=== PATIENT | female | born 1985 | race African-American/Black ===

== ENCOUNTER 2021-04-17 16:45 | Emergency (ER) | payer SELFPAY ==
[2021-04-17] MEDS ORDERED: NA CHLORIDE 0.9% 1,000 ML ONE (17:41)
[2021-04-17 17:52] LABS: Absolute Lymphocytes (CBC) 1.4 K/uL (0.7-4.9); Basophils % 0.6 % (0-1.3); Lymphocytes % 18.2 % (15.3-44.8); MPV 7.9 fL (7.6-11.3); RBC Red Blood Cell Count 4.63 M/uL (3.86-4.86)
[2021-04-17 18:09] LABS: Albumin 3.9 g/dL (3.4-5.0); Bilirubin Direct 0.3 mg/dL (0-0.2); Bilirubin Total 1.2 mg/dL (0.2-1.0); Potassium 3.5 mmol/L (3.5-5.1); Protein, Total 8.1 g/dL (6.4-8.2)
--- NOTE | 2021-04-17 20:23 | RAD REPORT ---
EXAM DESCRIPTION: CT - Abdomen Pelvis W Contrast - 04/17/2021 8:02 pm CLINICAL HISTORY: Constipation;Abd pain COMPARISON: <Comparisons> TECHNIQUE: Biphasic, helical CT imaging of the abdomen and pelvis was performed following 100 ml non -ionic IV contrast. No oral contrast administered. All CT scans are performed using dose optimization technique as appropriate and may include automated exposure control or mA/KV adjustment according to patient size. FINDINGS: No suspicious findings in the lung bases. The liver, spleen, and pancreas show no suspicious findings. Gallbladder and biliary tree are also wi thout suspicious finding. Symmetric renal function is seen with no hydronephrosis or suspicious renal mass. No pyelonephritis o r acute parenchymal process. No bladder abnormalities. No adrenal abnormalities. Uterine size is normal. No suspicious myometrial mass identified. IUD is in place and appears to be l ow-lying with the IUD in the lower uterine segment and cervix. This may produce effectiveness and nee ds correlation an outpatient follow-up. No ovarian primary process seen. No stomach or small bowel abnormality. Appendix is normal. Large amount of stool is present dilating the rectum to 7 cm. Stool distends the sigmoid colon. No colon mass identified. No free air, free flu id or inflammatory stranding. No hernia, mass or bulky lymphadenopathy. No suspicious bony findings. IMPRESSION: Large amount of stool dilating the rectum to 7 cm with moderate stool volume distending the sigmoid colon. No appendicitis or surgically emergent finding. IUD is abnormally low within the lower uterine segment cervix likely diminishing long-term effectiven ess of this device.
--- NOTE | 2021-04-17 23:00 | EDPHYS ---
Physician Documentation [facility] Name: Kaylan Farah Age: 35 yrs Sex: Female : 1985 Arrival Date: 04/17/2021 Time: 16:47 Bed 12 Private MD: ED Physician Rj Au HPI: 04/17 17:26 This 35 yrs old Black Female presents to ER via Ambulatory with complaints of pm1 Constipation, Abdominal Pain. 17:26 The patient presents with abdominal pain that is diffuse, Constipation. Onset: The pm1 symptoms/episode began/occurred 2 weeks of constipation, 3 days of abdominal pain. The symptoms do not radiate. Associated signs and symptoms: Pertinent negatives: nausea, vomiting, and diarrhea, chest pain, dysuria, fever, shortness of breath. The symptoms are described as achy. Modifying factors: The symptoms are alleviated by nothing, OTC laxatives without improvement. the symptoms are aggravated by nothing. Severity of pain: in the emergency department the pain is actually worse. The patient has not experienced similar symptoms in the past. The patient has not recently seen a physician. 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 - Social history:: Smoking status: Patient reports the use of cigarette tobacco products, denies chronic smoking, but will smoke occasionally. ROS: 17:26 Constitutional: Negative for fever, chills, and weight loss, Cardiovascular: Negative pm1 for chest pain, palpitations, and edema, Respiratory: Negative for shortness of breath, cough, wheezing, and pleuritic chest pain. 17:26 Back: Negative for injury and pain, : Negative for injury, bleeding, discharge, and swelling, MS/Extremity: Negative for injury and deformity, Skin: Negative for injury, rash, and discoloration. 17:26 Neuro: Negative for headache, weakness, numbness, tingling, and seizure. 17:26 Abdomen/GI: Positive for abdominal pain, constipation, Negative for nausea, vomiting, and diarrhea. 17:26 All other systems are negative. Exam: 17:26 Constitutional: This is a well developed, well nourished patient who is awake, alert, pm1 and in no acute distress. Head/Face: Normocephalic, atraumatic. 17:26 Skin: Warm, dry with normal turgor. Normal color with no rashes, no lesions, and no evidence of cellulitis. MS/ Extremity: Pulses equal, no cyanosis. Neurovascular intact. Full, normal range of motion. 17:26 Cardiovascular: Exam negative for acute changes, Rate: normal, Rhythm: regular, Pulses: no pulse deficits are appreciated. 17:26 Respiratory: Exam negative for acute changes, respiratory distress, shortness of breath. 17:26 Abdomen/GI: Inspection: abdomen appears normal, Palpation: soft, in all quadrants, mild abdominal tenderness, in the right lower quadrant and left lower quadrant. 17:26 Neuro: Exam negative for acute changes, Orientation: is normal, Mentation: is normal, Motor: is normal, moves all fours. Vital Signs: 16:57 BP 98 / 74; Pulse 93; Resp 18; Temp 98; Pulse Ox 99% ; Weight 63.5 kg; Height 5 ft. 4 sv in. (162.56 cm); Pain 10/10; 19:11 BP 117 / 92; Pulse 82; Resp 17; Pulse Ox 99% on R/A; oh 21:00 BP 115 / 82; Pulse 84; Resp 18; Temp 98.6; Pulse Ox 98% ; wr 16:57 Body Mass Index 24.03 (63.50 kg, 162.56 cm) sv MDM: 17:01 Patient medically screened. pm1 21:30 Counseling: I had a detailed discussion with the patient and/or guardian regarding: lab pm1 results, radiology results. 21:42 Data reviewed: vital signs. Data interpreted: Pulse oximetry: on room air is 99 %. pm1 Interpretation: normal. 23:12 ED course: Reports pain and pressure relieved with disimpaction per RN. RN noted that pm1 she remove the hard stool and all she could feel was soft stool. Patient has been given Fleet enema by RN and she feels comfortable going home. Will discharge patient with lactulose for continued bowel movement at home. 04/17 17:12 Order name: Basic Metabolic Panel; Complete Time: 18:30 pm1 04/17 17:12 Order name: CBC with Diff; Complete Time: 18:30 pm1 04/17 17:12 Order name: Hepatic Function; Complete Time: 18:30 pm1 04/17 17:12 Order name: Lipase; Complete Time: 18:30 pm1 04/17 17:12 Order name: CT Abd/Pelvis - PO and IV Contrast; Complete Time: 20:27 pm1 04/17 17:12 Order name: IV Saline Lock; Complete Time: 17:45 pm1 04/17 17:12 Order name: Labs collected and sent; Complete Time: 17:45 pm1 Administered Medications: 17:45 Drug: NS 0.9% 1000 ml Route: IV; Rate: 1000 ml; Site: right antecubital; oh 21:40 Drug: Fleet Enema (sodium phosphate) 133 ml Route: VT; wr 22:35 Drug: Fleet Enema (sodium phosphate) 133 ml Route: VT; wr Disposition Summary: 04/17/21 22:59 Discharge Ordered Location: Home pm1 Problem: new pm1 Symptoms: have improved pm1 Condition: Stable pm1 Diagnosis - Constipation, unspecified pm1 Followup: pm1 - With: Emergency Department - When: As needed - Reason: Worsening of condition Followup: pm1 - With: Private Physician - When: 2 - 3 days - Reason: Recheck today's complaints, Continuance of care, Re-evaluation by your physician Discharge Instructions: - Discharge Summary Sheet pm1 - Constipation, Adult pm1 - Form - Excuse from Work, School, or Physical Activity wr Forms: - Medication Reconciliation Form pm1 - Thank You Letter pm1 - Antibiotic Education pm1 - Prescription Opioid Use pm1 Prescriptions: - Lactulose 10 gram/15 mL Oral Solution - take 30 milliliters by ORAL route once daily; 300 milliliter; Refills: 0, pm1 Product Selection Permitted Addendum: 04/20/2021 08:55 Co-signature as Attending Physician, Rj Au MD I agree with the assessment and r n plan of care. Attestation: The patient's history, exam findings, diagnostics, and a summary of any interventions or procedures was reviewed in detail with Sanya Hyde NP. Signatures: Dispatcher [employer] Ely Chakraborty RN RN sv Nieto, Roman, MD MD rn Marinas, Patrick, NP VISUAL MERCHANDISING ASSISTANT pm1 Meli Poole Oneka RN RN oh
--- NOTE | 2021-04-17 23:00 | ER ---
Nurse's Notes [facility] Name: Kaylan Farah Age: 35 yrs Sex: Female : 1985 Arrival Date: 04/17/2021 Time: 16:47 Bed 12 Private MD: Diagnosis: Constipation, unspecified Presentation: 04/17 16:56 Chief complaint: Patient states: constipation x 2 weeks, diffuse abd pain x 3 days. sv Risk Assessment: Do you want to hurt yourself or someone else? Patient reports no desire to harm self or others. Onset of symptoms was March 2021. 16:56 Method Of Arrival: Ambulatory sv 16:56 Acuity: ISELA 3 sv 16:57 Coronavirus screen: Vaccine status: Patient reports being unvaccinated. Ebola Screen: sv No symptoms or risks identified at this time. Initial Sepsis Screen: Does the patient meet any 2 criteria? HR > 90 bpm. No. Patient's initial sepsis screen is negative. Does the patient have a suspected source of infection? No. Patient's initial sepsis screen is negative. Triage Assessment: 16:59 General: Appears uncomfortable, Behavior is calm, cooperative. Neuro: Level of sv Consciousness is awake, alert, obeys commands, Gait is steady. Respiratory: Respiratory effort is even, unlabored. CENTER MGR: 18:16 LMP N/A - oh Historical: - Allergies: 16:57 No Known Allergies; sv - PMHx: 16:57 None; sv - PSHx: 16:57 None; sv - Immunization history:: Adult Immunizations up to date. - Social history:: Smoking status: Patient reports the use of cigarette tobacco products, denies chronic smoking, but will smoke occasionally. Screenin:08 Abuse screen: Denies threats or abuse. Nutritional screening: No deficits noted. oh Tuberculosis screening: No symptoms or risk factors identified. Fall Risk None identified. Assessment: 17:07 GI: Reports constipation, x 3 days, states she has been taking over the counter stool oh softeners with no relief. 17:51 Reassessment: pt finish oral contrast at 17:50, CT made aware. oh 19:11 Reassessment: awaiting urine, pt endorsed to night rn. oh 19:38 Reassessment: Patient have not given urine specimen. No change in assessment.. wr Vital Signs: 16:57 BP 98 / 74; Pulse 93; Resp 18; Temp 98; Pulse Ox 99% ; Weight 63.5 kg; Height 5 ft. 4 sv in. (162.56 cm); Pain 10/10; 19:11 BP 117 / 92; Pulse 82; Resp 17; Pulse Ox 99% on R/A; oh 21:00 BP 115 / 82; Pulse 84; Resp 18; Temp 98.6; Pulse Ox 98% ; wr 16:57 Body Mass Index 24.03 (63.50 kg, 162.56 cm) sv ED Course: 16:47 Patient arrived in ED. am2 16:56 Arm band placed on. sv 16:57 Triage completed. sv 17:01 [facility] Hyde [facility]. pm1 17:01 Rj Au MD is Attending Physician. pm1 17:02 Suad Elaine, DANIKA is Primary Nurse. oh 17:08 Bed in low position. Call light in reach. oh 17:45 Inserted saline lock: 20 gauge in right antecubital area, using aseptic technique. oh Blood collected. 20:02 CT Abd/Pelvis - PO and IV Contrast In Process Unspecified. EDMS Administered Medications: 17:45 Drug: NS 0.9% 1000 ml Route: IV; Rate: 1000 ml; Site: right antecubital; oh 21:40 Drug: Fleet Enema (sodium phosphate) 133 ml Route: CA; wr 22:35 Drug: Fleet Enema (sodium phosphate) 133 ml Route: CA; wr Outcome: 22:59 Discharge ordered by MD. pm1 23:19 Patient left the ED. Signatures: Dispatcher [employer] EDMS Ely Alvarado RN RN Sanya Hyde NP GEAR REPAIR SUPERVISOR pm1 Alesia Silva amMeli Haro Suad Elaine RN RN oh Corrections: (The following items were deleted from the chart) 16:59 16:57 Pulse 93bpm; Resp 18bpm; Pulse Ox 99%; Temp 98F; 63.5 kg; Height 5 ft. 4 in.; sv BMI: 24.0; Pain 10/10; sv
[2021-04-17 23:40] VITALS: BP 115/82; TEMP 98.6; O2SAT 98
== END 2021-04-17 23:19 | disposition home or self-care (01) ==
LOC: ER 16:45
DX: K59.00 Constipation, unspecified (principal); F17.210 Nicotine dependence, cigarettes, uncomplicated
CPT/HCPCS: 36415; 74177; 80048; 80076; 83690; 85025; 99284; J7030; Q9967

== ENCOUNTER 2024-10-21 00:19 | Emergency (ER) | payer SELFPAY ==
--- OUTSIDE RECORDS SUMMARY | 2024-10-21 00:23 | XMS REPORT | Continuity of Care Document ---
Author Name Unknown Address [address] [facility] [address] [place] [address] [facility] [place] Address [address] [facility] 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 Role Phone Elton Bateman Attending Clinician Unavailable Elton Bateman Attending Clinician Unavailable Elton Bateman Admitting Clinician Unavailable Payers Payer Name Policy Type Policy Number Effective Date Expirati on Date Source Allergies, Adverse Reactions, Alerts Allergy Name Allergy Type Status Severity Reaction(s) Onset Date Inactive Date Treating Clinician Comments Source No Known Drug Allergie s DA Active U 01-02 00:00: 00 [facility] No Known Allergie s Drug Active Health system Vital Signs Vital Name Observation Time Observation Value Comments S yuko Height/Length Measured 2021-07-31 12:17:11 162.6 cm Weight Dosing 2021-07-31 12:17:11 63.50 kg Height/Length Measured 2021-07-31 12:16:36 162.6 cm Weight Dosing 2021-07-31 12:16:36 63.50 kg Height/Length Measured 2021-07-31 12:15:35 162.6 cm Weight Dosing 2021-07-31 12:15:35 63.50 kg Height/Length Measured 2021-07-31 12:14:23 162.6 cm Weight Dosing 2021-07-31 12:14:23 63.50 kg Height/Length Measured 2021-07-31 12:13:37 162.6 cm Weight Dosing 2021-07-31 12:13:37 63.50 kg Height/Length Measured 2021-07-31 12:11:33 162.6 cm Weight Dosing 2021-07-31 12:11:33 63.50 kg Height/Length Measured 2021-07-31 12:11:32 162.6 cm Weight Dosing 2021-07-31 12:11:32 63.50 kg Height/Length Measured 2021-07-31 12:11:08 162.6 cm Weight Dosing 2021-07-31 12:11:08 63.50 kg Height/Length Measured 2021-07-31 12:10:22 162.6 cm Weight Dosing 2021-07-31 12:10:22 63.50 kg Height/Length Measured 2021-07-31 12:10:05 162.6 cm Weight Dosing 2021-07-31 12:10:05 63.50 kg Height/Length Measured 2021-07-31 12:09:47 162.6 cm Weight Dosing 2021-07-31 12:09:47 63.50 kg Height/Length Measured 2021-07-31 12:09:34 162.6 cm Height/Length Measured 2021-07-31 12:09:32 162.6 cm Height/Length Measured 2021-07-31 12:09:21 162.6 cm Height/Length Measured 2021-07-31 12:09:14 162.6 cm Height/Length Measured 2021-07-31 12:09:12 162.6 cm Height/Length Measured 2020-03-14 15:12:23 Encounters Start Date/Time End Date/Time Encounter Type Admission Type Attending [facility] Care Department Encounter ID Source 2021-01-02 15:14:00 Inpatient [facility] [id number] [facility] 2021-01-02 15:14:00 Inpatient [facility] [id number] [facility] 2020-03-14 14:57:00 2020-03-22 13:32:00 Inpatient 1 Elton Bateman Michael [facility] PSY [id number] Health system 2020-03-14 14:57:00 2020-03-14 14:57:00 Emergency [facility] LISA [id number] Health system Results Test Description Test Time Test Comments Results Result Co mments Source HCG, Urine Qual (LAB)2021-01-02 16:05:00* Test Item Value Reference Range Interpretation Comme nts HCG, Urine, Qual (test code = HCGU) Negative Negative Drug Screen,[id number] 16:05:00* Test Item Value Reference Range Interpretation Comme nts PCP Phencyclidine Screen,Uri ne (test code = PCPU) Negative Negative Amphetamine Screen,Urine (te st code = AMPU) Negative Negative Methadone Screen,Urine (test code = METHU) Negative Negative Opiate Screen,Urine (test co de = UOPIS) Negative Negative Barbituates Screen,Urine (te st code = BARBU) Negative Negative Benzodiazepines Screen,Urine (test code = UBENZS) Negative Negative Cocaine Screen,Urine (test c ode = UCOCS) Negative Negative Cannabinoid Screen,Urine (te st code = UTHCS) Positive Negative A Propoxyphene Screen, Urine ( test code = UPROP) Negative Negative Coronavirus PCR, COVID19 [id number] 16:01:00* Test Item Value Reference Range Interpretation Comme nts Coronavirus PCR, COVID19 Rapid (test code = SARSCOV2) For use under Emergency Use Authorization (EUA) only. Coronavirus PCR, COVID19 Rapid (test code = BNAUMBL99.1) Reference Range: Negative SARS-CoV-2 PCR Result: (test code = SARS-CoV-2 PCR Result:) Negative by PCR COVID-19 Status: AsymptomaticComprehensive Metabolic [id number] 15:56:00* Test Item Value Reference Range Interpretation Comme nts SODIUM (test code = NA) 137.0 mmol/L 136.0-145.0 N Potassium,K (test code = K) 4.1 mmol/L 3.0-5.1 N Chloride (test code = CL) 106 mmol/L 98-107 N Carbon Dioxide (test code = CO2) 28 mmol/L 20-31 N Anion Gap (test code = GAP) 3 mmol/L 5-15 L Blood Urea Nitrogen (test co de = BUN) 13 mg/dL 9-23 N Creatinine (test code = CREATT) 0.79 mg/dL 0.55-1.02 N Creatinine Clr Calc Pharmacy (test code = CRCLPHA) 87.46 mL/min Estimated GFR ( [place] (test code = EGFRAA) > 60 mL/min/1.73m2 Estimated GFR (Non Afr [place] (test code = EGFRNAA) > 60 mL/min/1.73m2 BUN/Creatinine Ratio (test c ode = BCRATIO) 16 ratio 10-20 N Glucose (test code = GLU) 99 mg/dL 74-106 N Osmolality,Calculated (test code = OSMOC) 283.6 Calcium (test code = CA) 9.4 mg/dL 8.3-10.6 N Bilirubin,Total (test code = BILIT) 0.7 mg/dL 0.2-1.1 N Aspartate Amino Transferase (test code = AST) 17 U/L 0-34 N Alanine Aminotransferase (te st code = ALT) 13 U/L 10-49 N Total Protein (test code = TP) 7.0 g/dL 5.7-8.2 N Albumin Level (test code = ALB) 4.4 g/dL 3.2-4.8 N Globulin (test code = GLOB) 2.6 mg/dL 2.3-3.5 N Albumin/Globulin Ratio (test code = AGRATIO) 1.7 ratio 0.8-2.0 N Alkaline Phosphatase (test c ode = ALP) 73 U/L 46-116 N Ethanol [id number] 15:56:00* Test Item Value Reference Range Interpretation Comme nts Ethanol (test code = ETOH) 5 mg/dL Complete Blood Count Auto [id number] 15:56:00* Test Item Value Reference Range Interpretation Comme nts White Blood Count (test code = WBCT) 6.2 x10 3/uL 4.4-10.5 N Red Blood Count (test code = RBC) 4.19 x10 6/uL 3.75-5.20 N Hemoglobin (test code = HGBT) 12.0 g/dL 12.2-14.8 L Hematocrit (test code = HCTT) 37.4 % 36.5-44.4 N Mean Corpuscular Volume (anum t code = MCV) 89.30 fL 80.00-100.00 N Mean Corpuscular Hemoglobin (test code = MCH) 28.6 pg 27.0-32.5 N Mean Corpuscular HGB Conc (test code = MCHC) 32.10 g/dL 32.00-37.50 N RDW Coefficient of Variation (test code = RDWCV) 12.8 % 11.5-14.5 N Platelet Count (test code = PLTT) 298.0 x10 3/uL 140.0-440.0 N Mean Platelet Volume (test code = MPV) 9.5 fL Immature Granulocytes % (Aut o) (test code = IMMGRAN%) 0.2 % 0.0-5.0 N Neutrophils % (Auto) (test code = NE%) 57.5 % 36.0-70.0 N Lymphocytes % (Auto) (test code = LY%) 30.7 % 12.0-44.0 N Monocytes % (Auto) (test cod e = MO%) 8.2 % 0.0-11.0 N Eosinophils % (Auto) (test code = EO%) 2.6 % 0.0-7.0 N Basophils % (Auto) (test cod e = BA%) 0.8 % 0.0-2.0 N Immature Granulocytes # (Aut o) (test code = IMMGRAN#) 0.01 x10 3/uL Neutrophils # (Auto) (test code = NE#) 3.6 x10 3/uL 1.6-7.4 N Lymphocytes # (Auto) (test code = LY#) 1.91 x10 3/uL 0.50-4.60 N Monocytes # (Auto) (test cod e = MO#) 0.51 x10 3/uL 0.00-1.20 N Eosinophils # (Auto) (test code = EO#) 0.16 x10 3/uL 0.00-0.74 N Basophils # (Auto) (test cod e = BA#) 0.05 x10 3/uL 0.00-0.21 N nRBC Abs (test code = NRBCA) 0 nRBC Pct (test code = NRBCP) 0 % RPR [id number] 18:40:32* Test Item Value Reference Range Interpretation Comme nts RPR Qual (test code = RPR Qual) Non-Reactive Non-Reactive Reactive Control (test code = Reactive Control) Reactive Weak Reactive Control (test code = Weak Reactive Control) Weak Reactive Non-Reactive Control (test c ode = Non-Reactive Control) Non-Reactive Lot # (test code = Lot #) [id number] N Expiration Dt (test code = Expiration Dt) 9,.30.21 N Urine [id number] 09:41:14C Urine Added by [id number] growth at 24 hours. No growth at 48 hours.Novel Coronavirus SARS-CoV-2, [id number] 22:48:32* Test Item Value Reference Range Interpretation Comme nts SARS-CoV-2 PCR (test code = SARS-CoV-2 PCR) NEGATIVE Negative Positive results are indicative of active infection with SARS-CoV-2; clinical correlation with patient history and other diagnostic information is necessary to determine patient infection status.Presumptive positive results -INTERPRET WITH CAUTION: Result may not reflect if patient is actually positive. Patient should be treated based on clinical suspicions. Negative results do not preclude SARS-CoV-2 infection and should not be used as the sole basis for treatment or other patient management decisions. Negative results must be combined with clinical observations, patient history, and epidemiological information.The Xpert Xpress SARS-CoV-2 test is only for use under the Food and Drug Administration s Emergency Use Authorization." Urinalysis [id number] 18:32:24* Test Item Value Reference Range Interpretation Comme nts UA WBC (test code = UA WBC) 20-29 0-5 A UA RBC (test code = UA RBC) 0-5 0-5 UA Bacteria (test code = UA Bacteria) Moderate A UA Squam Epithelial (test co de = UA Squam Epithelial) TNTC A UA Mucous (test code = UA Mucous) Moderate A Urinalysis with Culture, if [id number] 18:10:33* Test Item Value Reference Range Interpretation Comme nts UA Color (test code = UA Color) YELLO Yellow UA Appear (test code = UA Appear) SCLD Clear A UA pH (test code = UA pH) 5.5 N UA Spec Grav (test code = UA Spec Grav) 1.030 1.001-1.035 UA Glucose (test code = UA Glucose) NEG Negative UA Bili (test code = UA Bili) Small mg/dL N UA Ketones (test code = UA Ketones) Trace mg/dL N UA Blood (test code = UA Blood) NEG Negative UA Protein (test code = UA Protein) 30 mg/dL N UA Urobilinogen (test code = UA Urobilinogen) .2 mg/dL >0.2 UA Nitrite (test code = UA Nitrite) NEG Negative UA Leuk Est (test code = UA Leuk Est) Trace cells/mcL N UA Micro Ind? (test code = U A Micro Ind?) Indicated Not Indicated A Urine [id number] 17:59:28* Test Item Value Reference Range Interpretation Comme nts Amphetamine Screen Ur (test code = Amphetamine Screen Ur) Positive Negative A The speci men is presumptive positive if the analyte concentration is equal to or greater than 1000 ng/ml.If confirmation of positive result is desired, please order Amphetamine Confirmation, Urine within 7 days. Barbiturate Screen Ur (test code = Barbiturate Screen Ur) Negative Negative The speci men is presumptive positive if the analyte concentration is equal to or greater than 200 ng/ml.If confirmation of positive result is desired, please order Barbiturate Confirmation, Urine within 7 days. Benzodiazepines Ur (test code = Benzodiazepines Ur) Negative Negative The specimen is presumptive positive if the analyte concentration is equal to or greater than 200 ng/ml.If confirmation of positive result is desired, please order Benzodiazephine Confirmation, Urine within 7 days. Cocaine Screen Ur (test code = Cocaine Screen Ur) Negative Negative The specimen is presumptive positive if the analyte concentration is equal to or greater than 300 ng/ml.If confirmation of positive result is desired, please order Cocaine Metabolite Confirmation, Urine within 7 days. Opiate Screen Ur (test code = Opiate Screen Ur) Negative Negative The specimen is presumptive positive if the analyte concentration is equal to or greater than 2000 ng/ml.If confirmation of positive result is desired, please order Opiate Confirmation, Urine within 7 days. U PCP Scrn (test code = U PCP Scrn) Negative Negative The specimen is presumptive positive if the analyte concentration is equal to or greater than 25 ng/ml.If confirmation of positive result is desired, please order Phencyclidine Confirmation, Urine within 7 days. Cannabinoid Screen Ur (test code = Cannabinoid Screen Ur) Negative Negative The speci men is presumptive positive if the analyte concentration is equal to or greater than 50 ng/ml.If confirmation of positive result is desired, please order Cannabinoid (THC) Confirmation, Urine within 7 days. U Methadone Scr (test code = U Methadone Scr) Negative Negative The spec imen is presumptive positive if the analyte concentration is equal to or greater than 300 ng/ml.If confirmation of positive result is desired, please order Methadone Confirmation, Urine within 7 days. U Propoxyphene (test code = U Propoxyphene) Negative Negative The speci men is presumptive positive if the analyte concentration is equal to or greater than 300 ng/ml.If confirmation of positive result is desired, please order Propoxyphene Confirmation within 7 days. Comprehensive Metabolic [id number] 17:43:17* Test Item Value Reference Range Interpretation Comme nts Sodium Level (test code = So dium Level) 137.0 mmol/L 136.0-145.0 Potassium Level (test code = Potassium Level) 3.50 mmol/L 3.50-5.10 Chloride Level (test code = Chloride Level) 104.0 mmol/L 98.0-107.0 CO2 (test code = CO2) 28 mmol/L 20-31 Anion Gap (test code = Anion Gap) 5.0 mmol/L 5.0-15.0 BUN (test code = BUN) 15 mg/dL 9-23 Creatinine Level (test code = Creatinine Level) 0.95 mg/dL 0.55-1.02 BUN/Creat Ratio (test code = BUN/Creat Ratio) 15.8 ratio 10.0-20.0 Glucose Level (test code = Glucose Level) 100 mg/dL 74-106 Calcium Level (test code = Calcium Level) 8.9 mg/dL 8.3-10.6 Alk Phos (test code = Alk Phos) 106 U/L 46-116 Bilirubin Total (test code = Bilirubin Total) 1.1 mg/dL 0.2-1.1 Albumin Level (test code = Albumin Level) 4.6 g/dL 3.2-4.8 Protein Total (test code = Protein Total) 7.3 g/dL 5.7-8.2 ALT (test code = ALT) 15 U/L 10-49 AST (test code = AST) 18 U/L <=34 Globulin (test code = Globulin) 2.7 g/dL 2.3-3.5 A/G Ratio (test code = A/G Ratio) 1.7 g/dL 0.8-2.0 Hemolysis (test code = Hemolysis) 0 g/dL 1-2 Icterus (test code = Icterus) 0 g/dL 1-2 Lipemia (test code = Lipemia) 0 g/dL 1-2 Comprehensive Metabolic [id number] 17:43:17* Test Item Value Reference Range Interpretation Comme nts Sodium Level (test code = Sodium Level) 137.0 mmol/L 136.0-145.0 Potassium Level (test code = Potassium Level) 3.50 mmol/L 3.50-5.10 Chloride Level (test code = Chloride Level) 104.0 mmol/L 98.0-107.0 CO2 (test code = CO2) 28 mmol/L 20-31 Anion Gap (test code = Anion Gap) 5.0 mmol/L 5.0-15.0 BUN (test code = BUN) 15 mg/dL 9-23 Creatinine Level (test code = Creatinine Level) 0.95 mg/dL 0.55-1.02 BUN/Creat Ratio (test code = BUN/Creat Ratio) 15.8 ratio 10.0-20.0 Glucose Level (test code = Glucose Level) 100 mg/dL 74-106 Calcium Level (test code = Calcium Level) 8.9 mg/dL 8.3-10.6 Alk Phos (test code = Alk Phos) 106 U/L 46-116 Bilirubin Total (test code = Bilirubin Total) 1.1 mg/dL 0.2-1.1 Albumin Level (test code = Albumin Level) 4.6 g/dL 3.2-4.8 Protein Total (test code = Protein Total) 7.3 g/dL 5.7-8.2 ALT (test code = ALT) 15 U/L 10-49 AST (test code = AST) 18 U/L <=34 Globulin (test code = Globulin) 2.7 g/dL 2.3-3.5 A/G Ratio (test code = A/G Ratio) 1.7 g/dL 0.8-2.0 eGFR AA (test code = eGFR AA) >60 mL/min/1.73 m2 >=60 eGFR (estimated Glomerular Filtration Rate) is an estimated value, calculated from the patient's serum creatinine using the MDRD equation. It is NOT the patient's actual GFR. The eGFR provides a more clinically useful measure of kidney disease than serum creatinine alone.This calculation takes sex and race into account, if the information is provided. If the race is not provided, and the patient is -[place], multiply by 1.212. If sex is not provided, and the patient is female, multiply by 0.742. Results for patients <18 years of age have not been validated by the MDRD study and should be interpreted with caution. eGFR Result Interpretation:eGFR > or = 60 is in the Normal RangeeGFR < 60 may mean kidney diseaseeGFR < 15 may mean kidney failure Ranges recommended by the National Kidney Foundation, http://nkdep.nih.gov Hemolysis (test code = Hemolysis) 0 g/dL 1-2 Icterus (test code = Icterus) 0 g/dL 1-2 Lipemia (test code = Lipemia) 0 g/dL 1-2 Alcohol [id number] 17:43:17* Test Item Value Reference Range Interpretation Comme nts Ethanol Level (test code = Ethanol Level) 4.8 mg/dL N The pharmacologi royal response to blood alcohol levels may vary from individual to individual. The fatal concentration has been reported to be >400 mg/dl. HCG Qualitative [id number] 17:43:17* Test Item Value Reference Range Interpretation Comme nts HCG, Serum Qual (test code = HCG, Serum Qual) Negative Negative Comprehensive Metabolic [id number] 17:43:17* Test Item Value Reference Range Interpretation Comme nts Sodium Level (test code = Sodium Level) 137.0 mmol/L 136.0-145.0 Potassium Level (test code = Potassium Level) 3.50 mmol/L 3.50-5.10 Chloride Level (test code = Chloride Level) 104.0 mmol/L 98.0-107.0 CO2 (test code = CO2) 28 mmol/L 20-31 Anion Gap (test code = Anion Gap) 5.0 mmol/L 5.0-15.0 BUN (test code = BUN) 15 mg/dL 9-23 Creatinine Level (test code = Creatinine Level) 0.95 mg/dL 0.55-1.02 BUN/Creat Ratio (test code = BUN/Creat Ratio) 15.8 ratio 10.0-20.0 Glucose Level (test code = Glucose Level) 100 mg/dL 74-106 Calcium Level (test code = Calcium Level) 8.9 mg/dL 8.3-10.6 Alk Phos (test code = Alk Phos) 106 U/L 46-116 Bilirubin Total (test code = Bilirubin Total) 1.1 mg/dL 0.2-1.1 Albumin Level (test code = Albumin Level) 4.6 g/dL 3.2-4.8 Protein Total (test code = Protein Total) 7.3 g/dL 5.7-8.2 ALT (test code = ALT) 15 U/L 10-49 AST (test code = AST) 18 U/L <=34 Globulin (test code = Globulin) 2.7 g/dL 2.3-3.5 A/G Ratio (test code = A/G Ratio) 1.7 g/dL 0.8-2.0 eGFR AA (test code = eGFR AA) >60 mL/min/1.73 m2 >=60 eGFR (estimated Glomerular Filtration Rate) is an estimated value, calculated from the patient's serum creatinine using the MDRD equation. It is NOT the patient's actual GFR. The eGFR provides a more clinically useful measure of kidney disease than serum creatinine alone.This calculation takes sex and race into account, if the information is provided. If the race is not provided, and the patient is -[place], multiply by 1.212. If sex is not provided, and the patient is female, multiply by 0.742. Results for patients <18 years of age have not been validated by the MDRD study and should be interpreted with caution. eGFR Result Interpretation:eGFR > or = 60 is in the Normal RangeeGFR < 60 may mean kidney diseaseeGFR < 15 may mean kidney failure Ranges recommended by the National Kidney Foundation, http://nkdep.nih.gov eGFR Non-AA (test code = eGFR Non-AA) >60.00 mL/min/1.73 m2 >=60.00 eGFR (estimated Glomerular Filtration Rate) is an estimated value, calculated from the patient's serum creatinine using the MDRD equation. It is NOT the patient's actual GFR. The eGFR provides a more clinically useful measure of kidney disease than serum creatinine alone.This calculation takes sex and race into account, if the information is provided. If the race is not provided, and the patient is -[place], multiply by 1.212. If sex is not provided, and the patient is female, multiply by 0.742. Results for patients <18 years of age have not been validated by the MDRD study and should be interpreted with caution. eGFR Result Interpretation:eGFR > or = 60 is in the Normal RangeeGFR < 60 may mean kidney diseaseeGFR < 15 may mean kidney failure Ranges recommended by the National Kidney Foundation, http://nkdep.nih.gov Hemolysis (test code = Hemolysis) 0 g/dL 1-2 Icterus (test code = Icterus) 0 g/dL 1-2 Lipemia (test code = Lipemia) 0 g/dL 1-2 Automated [id number] 17:42:50* Test Item Value Reference Range Interpretation Comme nts Neutro Auto (test code = Wisam tro Auto) 64.5 % 36.0-70.0 Lymph Auto (test code = Lymph Auto) 24.8 % 12.0-44.0 Marinette Auto (test code = Marinette Auto) 9.0 % 0.0-11.0 Eos, Auto (test code = Eos, Auto) 0.8 % 0.0-7.0 Basophil Auto (test code = B asophil Auto) 0.8 % 0.0-2.0 Neutro Absolute (test code = Neutro Absolute) 4.7 x10 1.6-7.4 Lymph Absolute (test code = Lymph Absolute) 1.80 x10 .50-4.60 [place]ette Absolute (test code = M emma Absolute) .65 x10 .00-1.20 Eos Absolute (test code = Eo s Absolute) 0.06 x10 0.00-0.74 Baso Absolute (test code = B aso Absolute) 0.06 x10 0.00-0.21 IG [id number] 17:42:50* Test Item Value Reference Range Interpretation Comme nts IG (test code = IG) 0.1 % 0.0-5.0 IG Abs (test code = IG Abs) 0 x10 N Complete Blood Count with [id number] 17:42:49* Test Item Value Reference Range Interpretation Comme nts WBC (test code = WBC) 7.2 x10 4.4-10.5 RBC (test code = RBC) 4.50 x10 3.75-5.20 Hgb (test code = Hgb) 12.9 g/dL 12.2-14.8 MCV (test code = MCV) 91.30 fL 80.00-100.00 Hct (test code = Hct) 41.1 % 36.5-44.4 MCHC (test code = MCHC) 31.40 g/dL 32.00-37.50 L RDW CV (test code = RDW CV) 13.0 % 11.5-14.5 MCH (test code = MCH) 28.7 pg 27.0-32.5 Platelets (test code = Platelets) 312.0 x10 140.0-440.0 MPV (test code = MPV) 10.3 fL N Slide Review (test code = Slide Review) Auto Auto Result crea frances by [email or web address] nRBC (test code = nRBC) 0 N NRBC Abs (test code = NRBC Abs) 0.00 x10 N
[2024-10-21] MEDS ORDERED: ZIPRASIDONE MESYLA 20 MG/VIAL IM ONE (00:24)
[2024-10-21] MEDS ORDERED: LORazepam 2 MG/ML VIAL ONE ×2 (00:24→00:36)
[2024-10-21] MEDS ORDERED: WATER FOR INJ,STERILE 10 ML ONE (00:25)
[2024-10-21 01:37] LABS: Specific Gravity > 1.030 (1.005-1.030); Sqamous Epithelial <5 /HPF (None Seen); Urine Bacteria 20-50 /HPF (<20); Urine Bilirubin 1+ (Negative); Urine Blood Negative (Negative); Urine Clarity Extremely Turbid (Clear); Urine Color Yellow (Yellow); Urine Culture Reflex Order NOT NEEDED; Urine Glucose TRACE (Negative); Urine Ketones TRACE (Negative); Urine Microscopic Reflex YN ORDER UMIC; Urine Mucus 4+ /HPF (None Seen); Urine Nitrite NEGATIVE (Negative); Urine Protein 2+ (Negative); Urine RBC <5 /HPF (None Seen); Urine Urobilinogen 1+ (Normal)
[2024-10-21 01:42] LABS: Barbiturates NEGATIVE (NEGATIVE); Benzodiazepines NEGATIVE (NEGATIVE); Cocaine POSITIVE (NEGATIVE); METHAMPHETAM POSITIVE (NEGATIVE); Methadone NEGATIVE (NEGATIVE); Opiates NEGATIVE (NEGATIVE); Phencyclidine NEGATIVE (NEGATIVE); THC Cannibis POSITIVE (NEGATIVE)
[2024-10-21 01:43] LABS: Absolute Lymphocytes (CBC) 1.4 K/uL (0.7-4.9); Absolute Monocytes 0.7 K/uL (0.1-1.3); Absolute Neutrophil 5.6 K/uL (1.8-8.0); Basophils % 0.6 % (0-1.3); Eosinophils % 0.4 % (0-4.4); Hemoglobin 13.4 g/dL (12.0-15.0); Lymphocytes % 17.5 % (15.3-44.8); MCH 28.7 pg (27.0-35.0); MCHC 33.4 g/dL (32.0-36.0); MCV 85.9 fL (80-100); MPV 8.8 fL (7.6-11.3); Monocytes % 8.7 % (3.3-12.3); Neutrophils % 72.8 % (41.7-73.7); Nucleated Red Blood Cells % 0.1 % (0-0); Platelets 218 thou/uL (152-406); RBC Red Blood Cell Count 4.66 M/uL (3.86-4.86); Red Cell Distribution Width 13.7 % (12.1-15.2)
[2024-10-21 01:45] LABS: PT Prothrombin Time 12.4 SECONDS (10-13.0); PTT, Activated Partial Thromb 25.3 SECONDS (27.2-37.4); Protime INR 1.09
[2024-10-21] MEDS ORDERED: NACHLORIDE 0.45% 1,000 ML IV ONE (01:55)
[2024-10-21] MEDS ORDERED: NA CHLORIDE 0.9% 1,000 ML ONE (01:55)
[2024-10-21 02:05] LABS: ALT/SGPT 23 U/L (13-56); AST/SGOT 23 U/L (15-37); Albumin 4.4 g/dL (3.4-5.0); Albumin/Globulin Ratio 1.1 (1.1-1.8); Alkaline Phosphatase 96 U/L (45-117); Anion Gap 8.1 mEq/L (5.0-15.0); BUN Blood Urea Nitrogen 16 mg/dL (7-18); Bicarbonate 26 mEq/L (21-32); Bilirubin Direct 0.3 mg/dL (0-0.2); Bilirubin Total 1.3 mg/dL (0.2-1.0); Globulin 3.9 g/dL (2.3-3.5); Glomerular Filtration Rate 61 ml/min (=/>90); Glucose Level 111 mg/dL (74-106); Potassium 3.1 mEq/L (3.5-5.1); Protein, Total 8.3 g/dL (6.4-8.2); Sodium Level 137 mEq/L (136-145)
--- NOTE | 2024-10-21 08:13 | ER ---
Nurse's Notes [facility] Name: Kaylan Farah Age: 38 yrs Sex: Female : 1985 Arrival Date: 10/21/2024 Time: 00:19 Bed 16 Private MD: Diagnosis: Altered mental status, unspecified;Abuse of other non-psychoactive substances;UTI/ Urinary tract infection, site not specified Presentation: 10/21 00:20 Chief complaint: EMS states: We were toned for possible methamphetamine overdose. bm8 00:20 Coronavirus screen: At this time, the client does not indicate any symptoms associated bm8 with coronavirus-19. Ebola Screen: No symptoms or risks identified at this time. Initial Sepsis Screen: Does the patient meet any 2 criteria? No. Patient's initial sepsis screen is negative. Does the patient have a suspected source of infection? No. Patient's initial sepsis screen is negative. Risk Assessment: Do you want to hurt yourself or someone else? Patient reports no desire to harm self or others. Onset of symptoms is unknown. 00:20 Method Of Arrival: EMS: [facility] bm8 00:20 Acuity: ISELA 2 bm8 Triage Assessment: 00:20 General: Appears distressed, uncomfortable, Behavior is agitated, combative, bm8 inappropriate for age. 00:20 Pain: Denies pain. EENT: No deficits noted. No signs and/or symptoms were reported bm8 regarding the EENT system. Neuro: Level of Consciousness is awake, Oriented to person, Appropriate for age Director Of Leadership Development are equal bilaterally Moves all extremities. Full function. Cardiovascular: Capillary refill < 3 seconds in bilateral fingers Patient's skin is warm and dry. Rhythm is sinus tachycardia. Respiratory: Airway is patent Respiratory effort is even, unlabored, Respiratory pattern is regular, symmetrical, Breath sounds are clear bilaterally. GI: No signs and/or symptoms were reported involving the gastrointestinal system. : No signs and/or symptoms were reported regarding the genitourinary system. Derm: No signs and/or symptoms reported regarding the dermatologic system. Musculoskeletal: No signs and/or symptoms reported regarding the musculoskeletal system. 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 - Infectious Disease History:: Denies. - Social history:: Smoking status: unknown. - Family history:: not pertinent. Screenin:41 [facility] ED Fall Risk Assessment (Adult). Nutritional screening: No deficits noted. dd2 Tuberculosis screening: No symptoms or risk factors identified. 10:40 [facility] ED Fall Risk Assessment (Adult) History of falling in the last 3 months, db including since admission No falls in past 3 months (0 pts) Confusion or Disorientation No (0 pts) Intoxicated or Sedated No (0 pts) Impaired Gait Yes (1 pt) Mobility Assist Device Used No (0 pt) Altered Elimination No (0 pt) Score/Fall Risk Level 0 - 2 = Low Risk Oriented to surroundings, Maintained a safe environment. Abuse screen: Denies threats or abuse. Denies injuries from another. Assessment: 01:46 General: Appears unkempt, Behavior is combative, uncooperative. Pain: Unable to use dd2 pain scale. ALTERED. Neuro: Level of Consciousness is MEDICALLY SEDATED. Oriented to MEDICALLY SEDATED. Cardiovascular: No deficits noted. Patient's skin is warm and dry. Respiratory: No deficits noted. Airway is patent Respiratory effort is even, unlabored, Respiratory pattern is regular, symmetrical, Breath sounds are clear bilaterally. GI: No deficits noted. No signs and/or symptoms were reported involving the gastrointestinal system. Abdomen is non-distended, Bowel sounds present X 4 quads. : No deficits noted. EENT: No deficits noted. Derm: No deficits noted. Skin is healthy with good turgor, Skin is dry, Skin is normal, Skin temperature is warm. Musculoskeletal: No deficits noted. Circulation, motion, and sensation intact. Range of motion: intact in all extremities. 07:15 Reassessment: Patient appears in no apparent distress at this time. Patient and/or db family updated on plan of care and expected duration. Pain level reassessed. 08:13 Reassessment: Patient appears in no apparent distress at this time. Patient and/or db family updated on plan of care and expected duration. Pain level reassessed. PATIENT EASILY AWAKENED. ASKED IF WANTS BREAKFAST. STATES NOT NOW. SAT UP. NAD. COMFORTABLE. SLEEPY. 10:15 Reassessment: PATIENT IS SITTING UP AND EATING. db 10:40 Reassessment: Patient appears in no apparent distress at this time. Patient and/or db family updated on plan of care and expected duration. Pain level reassessed. Patient is alert, oriented x 3, equal unlabored respirations, skin warm/dry/pink. Patient states symptoms have improved. Psych: 10:42 [place] Suicide Severity Screening: In the past month, have you wished you were db or wished you could go to sleep and not wake up? Patient responds "No." "In the past month, have you actually had any thoughts of killing yourself?" Patient responds "no." "In your lifetime, have you ever done anything, started to do anything, or prepared to do anything to end your life?" Patient responds "no.". Subjective: Patient's mood is Delusions are denied, Hallucinations are denied. Objective: Patient is cooperative. Interventions:. Safety Checks: Pt denies substance abuse. Commitment: HOLD. Vital Signs: 00:20 BP 107 / 77; Pulse 104; Resp 20; Temp 98.8; Pulse Ox 99% on R/A; Weight 65.77 kg; bm8 Height 5 ft. 3 in. ; Pain 0/10; 01:41 BP 107 / 77; Pulse 105; Resp 16; Pulse Ox 100% on R/A; dd2 08:13 BP 110 / 80; Pulse 89; Resp 14; Pulse Ox 100% on R/A; db 10:11 BP 118 / 86; Pulse 106; Resp 16; Pulse Ox 99% on R/A; db 00:20 Body Mass Index 25.69 (65.77 kg, 160.02 cm) bm8 00:20 Pain Scale: Adult bm8 [place] Coma Score: 07:34 Eye Response: to pain(2). Motor Response: localizes pain(5). Verbal Response: sp4 incomprehensible(2). Total: 9. ED Course: 00:20 Patient arrived in ED. rv1 00:20 Arm band placed on right wrist. bm8 00:22 Jac Lerma MD is Attending Physician. sp4 00:24 Raymon Butcher is Primary Nurse. mb12 01:41 No provider procedures requiring assistance completed. Initial lab(s) drawn, by me, anais2 sent to lab. EKG done, by ED staff, reviewed by Jac Lerma MD. Inserted saline lock: 20 gauge in right antecubital area, using aseptic technique. Blood collected. Flushed with 10 mL NS. Patient maintains SpO2 saturation greater than 95% on room air. 01:41 Patient has correct armband on for positive identification. Bed in low position. FOR PT dd2 SAFETY, MATTRESS IS CURRENTLY ON THE FLOOR, BED HAS BEEN REMOVED. Client placed on continuous cardiac and pulse oximetry monitoring. NIBP monitoring applied. licensed tax consultant on. Noise minimized. Lights dimmed. Warm blanket given. Pillow given. 03:51 Triage completed. bm8 07:11 Attending Physician role handed off by Jac Lerma MD arcadio 07:11 Frank Traylor MD is Attending Physician. arcadio 08:12 Lico Roque MD is Referral Physician. arcadio 10:40 IV discontinued, intact, bleeding controlled, No redness/swelling at site. db 10:40 Provided Education on: DISCHARGE AND FOLLOWUP. db Administered Medications: 00:41 Drug: LORazepam IM 4 mg IM once Route: IM; Site: right vastus lateralis; bm8 10:43 Follow up: Response: No adverse reaction db 00:42 Drug: Geodon IM 40 mg IM once Route: IM; Site: left vastus lateralis; bm8 03:49 Follow up: Response: No adverse reaction mb12 01:53 Drug: NS 0.9% IV 1000 ml IV at 1000 ml once; to be given as a bolus over 60 minutes dd2 Route: IV; Rate: 1000 ml; Site: right antecubital; 10:43 Follow up: Response: No adverse reaction; IV Status: Completed infusion; IV Intake: db 1000ml 01:55 Drug: NS 0.9% IV 1000 ml IV at 1000 ml once; to be given as a bolus over 60 minutes dd2 Route: IV; Rate: 1000 ml; Site: right antecubital; 02:05 Follow up: IV Status: Completed infusion mb12 03:48 Not Given (MISSING IVv): ativan2 mg IVP once mb12 03:48 Drug: NS IV 0.45 % 1000 ml IV at 125 ml/hr continuous Route: IV; Rate: 125 ml/hr; Site: mb12 right antecubital; 10:43 Follow up: IV Status: Completed infusion db 08:40 Drug: Rocephin IV 1 grams IV at per protocol once; Given slow IV push per pharmacy db instructions Route: IV; Rate: per protocol; Site: right antecubital; 09:30 Follow up: Response: No adverse reaction db Medication: 01:41 VIS not applicable for this client. dd2 Intake: 10:43 IV: 1000ml; Total: 1000ml. db Outcome: 08:13 Discharge ordered by . arcadio 10:40 Discharged to home via wheelchair, db 10:40 Condition: stable 10:40 Discharge instructions given to patient, Instructed on discharge instructions, follow up and referral plans. Prescriptions given X 1, 10:42 Patient left the ED. ll1 Signatures: Frank Traylor MD MD cha Lewis, Lynsay, RN RN ll1 Paulina Parks RN RN Valentine Guajardo Sergey, MD MD sp4 Phan Daniels RN RN bm8 NAHID MCFADDEN RN RN dd2 Raymon Butcher [facility]
--- NOTE | 2024-10-21 08:13 | EDPHYS ---
Physician Documentation [facility] Name: Kaylan Farah Age: 38 yrs Sex: Female : 1985 Arrival Date: 10/21/2024 Time: 00:19 Bed 16 Private MD: ED Physician Frank Traylor HPI: 10/21 00:24 This 38 yrs old Black Female presents to ER via Unassigned with complaints of Altered sp4 Mental Status - Delirium. 07:34 38-year-old female presents with acute amphetamine intoxication associated with acute sp4 combative and agitated behavior. HPI not available.. 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 - Infectious Disease History:: Denies. - Social history:: Smoking status: unknown. - Family history:: not pertinent. ROS: 07:34 Constitutional: Negative for fever, chills, and weight loss, sp4 07:34 All other systems are negative, Exam: 07:34 Constitutional: Thin female agitated on arrival acutely delirious combative, and sp4 uncooperative appears intoxicated on stimulant Head/Face: Normocephalic, atraumatic. Eyes: Pupils equal round and reactive to light, extra-ocular motions intact. Lids and lashes normal. Conjunctiva and sclera are not injected. Cornea within normal limits. Periorbital areas with no swelling, redness, or edema. ENT: Nares patent. No nasal discharge, no septal abnormalities noted. Tympanic membranes are normal and external auditory canals are clear. Oropharynx with no redness, swelling, or masses, exudates, or evidence of obstruction, uvula midline. Mucous membranes moist. Neck: Trachea midline, no thyromegaly or masses palpated, and no cervical lymphadenopathy. Supple, full range of motion without nuchal rigidity, or vertebral point tenderness. Chest/axilla: Normal chest wall appearance and motion. Nontender with no deformity. No lesions are appreciated. Cardiovascular: Regular rate and rhythm with a normal S1 and S2. No gallops, murmurs, or rubs. Normal PMI, no JVD. No pulse deficits. Respiratory: Lungs have equal breath sounds bilaterally, clear to auscultation and percussion. No rales, rhonchi or wheezes noted. No increased work of breathing, no retractions or nasal flaring. Abdomen/GI: Soft, with normal bowel sounds. No distension or tympany. No guarding or rebound. No evidence of tenderness throughout. Back: No spinal tenderness. No costovertebral tenderness. Skin: Warm, dry with normal turgor. Normal color with no rashes, no lesions, and no evidence of cellulitis. MS/ Extremity: Pulses equal, no cyanosis. Neurovascular intact. Full, normal range of motion. Neuro: Awake and alert, GCS 15, oriented to person, place, time, and situation. Cranial nerves II-XII grossly intact. Motor strength 5/5 in all extremities. Sensory grossly intact. Psych: Awake, alert, with orientation to person, place and time. Behavior, mood, and affect are within normal limits 07:39 ECG was reviewed by the Attending Physician. EKG 0 124 sinus tachycardia rate 105 sp4 Vital Signs: 00:20 BP 107 / 77; Pulse 104; Resp 20; Temp 98.8; Pulse Ox 99% on R/A; Weight 65.77 kg; bm8 Height 5 ft. 3 in. ; Pain 0/10; 01:41 BP 107 / 77; Pulse 105; Resp 16; Pulse Ox 100% on R/A; dd2 08:13 BP 110 / 80; Pulse 89; Resp 14; Pulse Ox 100% on R/A; db 10:11 BP 118 / 86; Pulse 106; Resp 16; Pulse Ox 99% on R/A; db 00:20 Body Mass Index 25.69 (65.77 kg, 160.02 cm) bm8 00:20 Pain Scale: Adult bm8 [place] Coma Score: 07:34 Eye Response: to pain(2). Motor Response: localizes pain(5). Verbal Response: sp4 incomprehensible(2). Total: 9. MDM: 00:23 Medical Screening Exam initiated sp4 07:38 Differential Diagnosis: electrolyte abnormality, alcohol intoxication, hypoglycemia, sp4 overdose, volume depletion. Data reviewed: vital signs, nurses notes, EMS record, old medical records, lab test result(s), EKG. Consideration of Admission/Observation Escalation of care including admission/observation considered. 07:39 ED course: Patient care transferred to Dr. Traylor. sp4 07:40 ED course: Patient arrives intoxicated belligerent and combative. Patient was given sp4 Geodon and Ativan intramuscular injections. At this time we are waiting for patient to wake up. On repeat evaluation patient is still groggy. Her care was transferred to Dr. Traylor for further disposition. 10/21 00:23 Order name: Acetaminophen; Complete Time: 04:51 sp4 10/21 00:23 Order name: Basic Metabolic Panel; Complete Time: 04:51 sp4 10/21 00:23 Order name: CBC with Diff; Complete Time: 04:51 sp4 10/21 00:23 Order name: ETOH Level; Complete Time: 04:51 sp4 10/21 00:23 Order name: Hepatic Function; Complete Time: 04:51 sp4 10/21 00:23 Order name: PT-INR; Complete Time: 04:51 sp4 10/21 00:23 Order name: Test, Urine; Complete Time: 04:51 sp4 10/21 00:23 Order name: Ptt, Activated; Complete Time: 04:51 sp4 10/21 00:23 Order name: Salicylate; Complete Time: 04:51 sp4 10/21 00:23 Order name: Urinalysis w/ reflexes; Complete Time: 04:51 sp4 10/21 00:23 Order name: Urine Drug Screen; Complete Time: 04:51 sp4 10/21 08:11 Order name: Urine Culture arcadio 10/21 00:23 Order name: EKG; Complete Time: 00:24 sp4 10/21 00:23 Order name: EKG - Nurse/Tech; Complete Time: :41 sp4 10/21 00:23 Order name: IV Saline Lock; Complete Time: :41 sp4 10/21 00:23 Order name: Labs collected and sent; Complete Time: : sp4 10/21 00:23 Order name: Suicide Screening ([place]); Complete Time: 10:15 sp4 EC:24 Rate is 105 beats/min. Rhythm is regular, Sinus tachycardia. QRS [place] is Normal. [place] sp4 interval is normal. QRS interval is normal. QT interval is normal. No Q waves. T waves are Normal. No ST changes noted. Clinical impression: No evidence of ischemia. Interpreted by me. Reviewed by me. Administered Medications: 00:41 Drug: LORazepam IM 4 mg IM once Route: IM; Site: right vastus lateralis; bm8 10:43 Follow up: Response: No adverse reaction db 00:42 Drug: Geodon IM 40 mg IM once Route: IM; Site: left vastus lateralis; bm8 03:49 Follow up: Response: No adverse reaction mb12 01:53 Drug: NS 0.9% IV 1000 ml IV at 1000 ml once; to be given as a bolus over 60 minutes dd2 Route: IV; Rate: 1000 ml; Site: right antecubital; 10:43 Follow up: Response: No adverse reaction; IV Status: Completed infusion; IV Intake: db 1000ml 01:55 Drug: NS 0.9% IV 1000 ml IV at 1000 ml once; to be given as a bolus over 60 minutes dd2 Route: IV; Rate: 1000 ml; Site: right antecubital; 02:05 Follow up: IV Status: Completed infusion mb12 03:48 Not Given (MISSING IVv): ativan2 mg IVP once mb12 03:48 Drug: NS IV 0.45 % 1000 ml IV at 125 ml/hr continuous Route: IV; Rate: 125 ml/hr; Site: mb12 right antecubital; 10:43 Follow up: IV Status: Completed infusion db 08:40 Drug: Rocephin IV 1 grams IV at per protocol once; Given slow IV push per pharmacy db instructions Route: IV; Rate: per protocol; Site: right antecubital; 09:30 Follow up: Response: No adverse reaction db Disposition Summary: 10/21/24 08:13 Discharge Ordered Notes: Location: Home arcadio Problem: new arcadio Symptoms: have improved arcadio Condition: Stable arcadio Diagnosis - Altered mental status, unspecified arcadio - Abuse of other non-psychoactive substances arcadio - UTI/ Urinary tract infection, site not specified arcadio Followup: arcadio - With: Private Physician - When: 2 - 3 days - Reason: Recheck today's complaints, Continuance of care, Re-evaluation by your physician Followup: arcadio - With: Lico Roque MD - When: 2 - 3 days - Reason: Recheck today's complaints, Re-evaluation by your physician Discharge Instructions: - Substance Use Disorder arcadio - Urinary Tract Infection, Adult arcadio - Supporting Someone With an Addiction arcadio - Urinary Tract Infection, Adult, [id number] arcadio - Mixed Bipolar Disorder arcadio - Supporting Someone With Bipolar Disorder arcadio - Substance Use Disorder and Mental Illness arcadio - Discharge Summary Sheet mb12 Forms: - Medication Reconciliation Form arcadio - Antibiotic Education arcadio - Prescription Opioid Use arcadio - Patient Portal Instructions arcadio - Leadership Thank You Letter arcadio - SBAR form mb12 Prescriptions: - Cipro 250 mg Oral tablet - take 1 tablet ORAL route every 12 hours; 14 tablet; Refills: 0, Product arcadio Selection Permitted Signatures: Dispatcher [employer] EDMS Frank Traylor MD MD cha Benton, Danielle RN RN db Jac Lerma MD MD sp4 Phan Daniels RN RN bm8 NAHID MCFADDEN RN RN dd2 Raymon Butcher mb12 Corrections: (The following items were deleted from the chart) 00:24 00:23 ACETAMINOPHEN+C.LAB.BRZ ordered. EDMS EDMS 00:24 00:23 BASIC METABOLIC PANEL+C.LAB.BRZ ordered. EDMS EDMS 00:24 00:23 CBC+H.LAB.BRZ ordered. EDMS EDMS 00:24 00:23 ETHANOL+C.LAB.BRZ ordered. EDMS EDMS 00:24 00:23 HEPATIC FUNCTION+C.LAB.BRZ ordered. EDMS EDMS 00:24 00:23 PROTIME (+INR)+COAG.LAB.BRZ ordered. EDMS EDMS 00:24 00:23 Test, Urine+UC.LAB.BRZ ordered. EDMS EDMS 00:24 00:23 PTT, ACTIVATED+COAG.LAB.BRZ ordered. EDMS EDMS 00:24 00:23 SALICYLATE+C.LAB.BRZ ordered. EDMS EDMS 00:24 00:23 Urinalysis+U.LAB.BRZ ordered. EDMS EDMS 00:24 00:23 URINE DRUG SCREEN+UC.LAB.BRZ ordered. EDMS EDMS 01:41 00:24 [place] ordered. sp4 dd2
[2024-10-21] MEDS ORDERED: CEFTRIAXONE 1000 MG/VIAL ONE (08:26)
[2024-10-21] MEDS ORDERED: NA CHLORIDE 0.9% 50 ML ONE (08:26)
[2024-10-21 10:50] VITALS: TEMP 98.8
[2024-10-21 10:53] VITALS: BP 118/86; O2SAT 99
--- NOTE | 2024-10-21 11:44 | EKG ---
Test Date: 2024-10-21 Test Time: 01:24:10 [employer]: DAO MEASUREMENT RESULTS: Intervals: Rate: 105 ND: 154 QRSD: 78 QT: 360 QTc: 475 [place]: P: 65 ND: 154 QRS: 37 T: 41 INTERPRETIVE STATEMENTS: Sinus tachycardia Otherwise normal ECG Compared to ECG 11/13/2022 17:23:01 Sinus rhythm no longer present Electronically Signed On 10-21-24 11:44:10 CDT by Spencer Catalan
== END 2024-10-21 10:42 | disposition home or self-care (01) ==
LOC: ER 00:19
DX: F55.8 Abuse of other non-psychoactive substances (principal); N39.0 Urinary tract infection, site not specified
CPT/HCPCS: 36415; 80048; 80076; 80143; 80179; 80307; 81001; 81025; 82077; 85025; 85610; 85730; 87086; 87088; 93005; 96361; 96372; 96374; 99285; J0696; J3486; J7030